=== PATIENT | female | born 2000 | race Caucasian/White ===

== ENCOUNTER 2023-04-18 01:44 | Emergency (ER) | payer BC, OTHER ==
[2023-04-18] MEDS ORDERED: Acetaminophen 325 MG TAB ONE (02:11)
== END 2023-04-18 03:30 | disposition home or self-care (01) ==
LOC: MADERS 01:44
DX: S06.0X0A Concussion without loss of consciousness, initial encounter (principal); V89.2XXA Person injured in unspecified motor-vehicle accident, traffic, initial encounter
CPT/HCPCS: 70450